=== PATIENT | male | born 1955 | race Caucasian/White ===

== ENCOUNTER 2021-11-12 08:00 | Outpatient (RCR) | payer MEDICARE, BC, SELFPAY ==
--- NOTE | 2021-11-12 11:46 | PT.OPDNX ---
PT [place] [facility] Daily Note PT [facility] Daily Note Start: 10/28/21 14:20 Freq: Status: Active Protocol: Document 11/12/21 09:09 MARLENY (Rec: 11/12/21 09:12 MARLENY [id number]) E-Signed By SUKUMAR BakerT, MS PT OP Daily Progress Note Visit Information Note Type Recert/Progress Note Visit Number [id number] Insurance Information Recert Due Date 11/06/21 Insurance Name Medicare B,Blue [employer] Medical Diagnosis Post-op right total knee arthroplasty Treating Diagnosis R knee pain, decreased R knee ROM, decreased R LE flexibility and strength, and gait dysfunction Subjective Subjective Pt reports his knee has been feeling great with stiffness upon waking being only complaint, but this is improving. 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 Continues to perform his HEP 1-2x per day alternating walking and biking . Working diligently on his ext ROM. Plans on attempting I sx management with his HEP as he preps for his L TKA in Dec 2021. Pain Comments 0-1 Objective Other/Pertinent Objective Right knee AROM: 0-0-133 deg in supine Gait: improved quality with decreased L stance time, decreased L stride length and improved velocity SLS: R 10 sec, L 5 sec with pain Stairs: good reciprocal pattern ascending<>descending 10 stairs 1 railing Strength Hip flex, knee ext, knee flex, hip ext B 5/5. Hip ABD R 4/5, L 4-/5 Patient Instructed in Risks/Benefits Yes Therapeutic Exercise Therapeutic Exercise Minutes (minutes) 45 Therapeutic Exercise: To Restore -Recumbent bike for ROM and Functional Status overall mobility x 8 min -Standing HS stretching 30 sec x 3 - seated HS curl machine progressed 4.5 plates 10 x 3 reps - allowing for a good stretch at the top to the posterior knee -leg press B LE 90# 10 x 3 reps focus on TKE -TKE with ball on wall for 12 x 5 holds focusing on TKE -Retro walking focusing on TKE for R LE 4 x 45 ft -Fwd Step up 6 inch w/UE assist 12 x 3 reps R LE -Progressed to side stepping OTB above knees 30' x 6, 3 sets -SLR progressed slight ER 3 x 12 reps focus on keeping quad engaged without ext lag -SLS R LE FG EO 5 x 10 sec -Progressed walking july 23' x 6, 2 sets Manual Therapy Techniques Manual Therapy Minutes (minutes) 15 Manual Therapy Techniques *Knee passive ROM 0-0-133 deg following STM/TPR around superiors patellar muscles, working to stretch the posterior knee AP knee mobs to improve ext Treatment Minutes Timed Code Treatment Minutes 60 Total Treatment Time 60 Billing Units Manual Therapy Units 1 Therapeutic Exercise Units 3 Assessment/Impression Assessment/Impression Pt continues to progress very well in PT with significant improvement quality of gait, balance and R LE strength with no quad lag during SLR today. Continued diligent HEP performance with pt focusing on passive ext. Excellent HEP compliance and good esthela to progression of dynamic LE strengthening today. All PT goals met or progressing and he will attempt I sx management. 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 Plan of Care Physical Therapy Goals Short-term goals to be completed in 4 weeks: 1.Pt will display active right knee ROM > 0-0-120 deg to improve quality of gait. MET 2.Pt will display improved R LE strength as evidenced by ability to perform >15 SLR of good quality to improve quality of gait and progress to ambulation with single point cane. MET Long-term goals to be completed in 12 weeks: 1.Pt will be independent and compliant with HEP. MET 2.Pt will display improved right hip flex, hip ABD, quad and hamstring strength >4/5 to improve quality of gait without assistive device. Progressing 3.Pt will be able to walk for >10 minutes with right knee pain </= 2/10 to improve cardiovascular endurance. MET 4.Pt will report >75% improvement in LEFS questionnaire to significantly improve esthela to daily activities. MET Daily Plan of Care Continue per POC Recertification Information Clinical Certification # #[id number] Patient's H.I.C.N.# # Most Recent Visit 11/12/21 Recertification Start Date 11/06/21 Recertification Due Date 02/04/22 Reasons to Continue Skilled Therapy See assessment. Pt has experienced elevated R knee pain and swelling as he increases functional activity performance. Rehabilitation Potential Excellent Continued Plan of Care and Interventions 1x every other week for 2-4 additional visits with TE, MT, NM re-ed. I Certify That I Have Established All Therapy Services/Plan Therapist Signature & License Number Tr Bg, DPT [id number] Physician Signature Shows Agreement Dates & Medical Necessity Physician Comment/Change Comment or Changes Physician Signature & Date Please Sign/Date Here Physician NPI Number #
== END 2022-01-02 08:33 | disposition home or self-care (01) ==
PROVIDERS: PCP Family Medicine; Visit Provider Orthopaedic Surgery
DX: M25.561 Pain in right knee (principal); R26.9 Unspecified abnormalities of gait and mobility; Z51.89 Encounter for other specified aftercare
CPT/HCPCS: 97110; 97140

== ENCOUNTER 2022-01-06 08:54 | Day surgery (SDC) | payer MEDICARE, BC, SELFPAY ==
[2022-01-05 14:00] VITALS: BP 149/92; PULSE 62; RESP 16; TEMP 36; O2SAT 98
[2022-01-06] VITALS (33 sets, daily range): BP systolic 104–171; BP diastolic 66–98; PULSE 53–85; RESP 14–20; TEMP 36–36.7; O2SAT 90–98; BMI 30.9
[2022-01-06] MEDS: CELECOXIB 200 MG CAPSULE PO ×2 (09:30→21:13)
[2022-01-06] MEDS: SODIUM CHLORIDE 0.9 % (FLUSH) 10 ML SYRINGE IVF (09:30)
[2022-01-06] MEDS: LACTATED RINGERS 1000 ML 1,000 ML 100 ML IV (09:30)
[2022-01-06] MEDS: OXYCODONE (CR) 10 MG TAB.ER.12H PO (09:30)
[2022-01-06] MEDS: ACETAMINOPHEN 500 MG TABLET 1000 MG PO ×2 (09:30→18:01)
[2022-01-06] MEDS: fentaNYL 100 MCG/2 ML inj IVP (10:07)
[2022-01-06] MEDS: MIDAZOLAM HCL 1 MG/ML inj IVP (10:07)
--- NOTE | 2022-01-06 10:15 | SUR.PREOP ---
TIME?OUT:?1006 PT/RN/MDA?VERIFICATION?OF?SURGICAL?SITE,?PROCEDURE,?AND?CONSENT OBTAINED?PRIOR?TO?INVASIVE?PROCEDURE. All in agreement.
--- NOTE | 2022-01-06 11:18 | W.ANESCHARGE ---
Anesthesia Charges Start Date/Time Anesthesia Start Date: 01/06/22 Anesthesia Start Time: 10:42 Stop Date/Time Anesthesia Stop Date: 01/06/22 Anesthesia Stop Time: 13:06 Summary Emergency: No
[2022-01-06] MEDS: CEFAZOLIN 2 GM INJ IVP (11:30)
--- NOTE | 2022-01-06 12:17 | CRLHL7_ITS ---
For Patients: As a result of the Cures Act, medical imaging exams and procedure reports are released immediately into your electronic medical record. You may view this report before your referring provider. If you have questions, please contact your health care provider. Indication: POST OP LEFT KNEE Technique: Two views left knee Findings/Impression: Hardware from a left total knee arthroplasty is in satisfactory position. Bone alignment is normal. No sign of acute fracture. Postop changes are within normal limits. Dictated by Carlos Eduardo Chase MD @ 01/06/2022 3:31:12 PM (Electronically Signed)
--- NOTE | 2022-01-06 12:18 | W.PM.NB ---
Nerve Block Nerve Block Date Seen: 01/06/22 Type of block requested by surgeon for post-operative analgesia: adductor canal Side: left Time out performed: Yes Verification of patient name: Yes Verification of date of : Yes Site marking: site marked Name of person performing procedure: Milton Continuous monitoring Was continuous monitoring of O2 sat, B/P, front desk monitor, recorded every 15 minutes?: Yes Procedure Checklist: sterile prep, needles and gloves Ultrasound guided. Images saved: Yes Medications given in 5ml increments after negative aspiration: Ropivicaine %: 0.5 mL: 20 Needle gauge: 22 Decadron (mg): 10 Precedex (mcg): 25 Patient tolerated procedure well: Yes Additional comments: Needle noted adjacent to nerve Block Charges Block Charge (with Pro Fee): Femoral Nerve Use of Ultrasound Machine for Block: Yes- US Guidance/pain block
--- NOTE | 2022-01-06 12:18 | W.PM.NB ---
Nerve Block Nerve Block Date Seen: 01/06/22 Type of block requested by surgeon for post-operative analgesia: geniculars Side: left Time out performed: Yes Verification of patient name: Yes Verification of date of : Yes Site marking: site marked Name of person performing procedure: Milton Continuous monitoring Was continuous monitoring of O2 sat, B/P, playground monitor, recorded every 15 minutes?: Yes Procedure Checklist: sterile prep, needles and gloves Medications given in 5ml increments after negative aspiration: Ropivicaine %: 0.5 mL: 9 Needle gauge: 25 Patient tolerated procedure well: Yes Block Charges Block Charge (with Pro Fee): Genicular Nerve Block Use of Ultrasound Machine for Block: No
--- NOTE | 2022-01-06 12:23 | PM.ORPRC ---
Procedure Note Date of procedure: 01/06/22 Procedure: SURGEON: Bradly Juan MD RADIOLOGY PHYSICIAN: BRIAN Lambert PREOPERATIVE DIAGNOSIS: Left knee osteoarthritis POSTOPERATIVE DIAGNOSIS: Left knee osteoarthritis NAME OF OPERATION: Left total knee arthroplasty ANESTHESIA: Spinal ESTIMATED BLOOD LOSS: 0 mL COMPLICATIONS: None SPECIMENS: None DRAINS: None PREOPERATIVE ANTIBIOTICS: Ancef 2 grams IMPLANTS: 1. J&J Attune # 7 posterior stabilized femur 2. # 8 fixed-bearing tibia 3. # 7 posterior stabilized, 7 mm fixed-bearing polyethylene 4. 41 patella INDICATIONS: The patient is a 66-year-old male with a longstanding history of severe, unrelenting left knee pain secondary to end-stage (grade IV) left knee osteoarthritis. Despite appropriate nonoperative management, including activity modification, anti-inflammatories, [id number] pain medication, bracing, physical therapy, and injections they continue to have pain and disability. Operative intervention was offered. The risks, benefits and expected outcomes were discussed in detail. These included but were not limited to: Infection, bleeding, injury to blood vessel or nerve, venous thromboembolism. All questions were answered to their satisfaction. Use of an kindergarten instructional assistant was necessary throughout the case for patient positioning and safety, soft tissue retraction, and closure. PROCEDURE: Spinal anesthesia was administered. The patient was placed supine on the operating table. The kindergarten instructional assistant made sure the patient was positioned appropriately. The lower extremity was prepped and draped in the usual sterile fashion. The limb was exsanguinated with the Roosevelt bandage. The pneumatic tourniquet was inflated to 300 mmHg. A standard anterior incision was made with the knee in flexion. Subcutaneous dissection was sharply taken through fascial layer #1. Full-thickness medial and lateral flaps were elevated. The kindergarten instructional assistant retracted the soft tissues and protected them throughout the case. A standard medial parapatellar approach was made. The patella was everted. The infrapatellar fat pad was preserved. The menisci and cruciate ligaments were sharply d?brided. Marginal osteophytes were d?brided with the rongeur. The drill was used to penetrate the femoral canal. The canal was aspirated and irrigated with pulse lavage. The intramedullary femoral guide was placed for a 5-degree valgus cut, removing 10 mm off the distal femur. The saw was used to make the cut. Whitesides line and the trans epicondylar axis were marked. The femoral sizing guide was pinned onto the distal femur. Three degrees of external rotation nicely parallels the transepicondylar axis. Pins were placed for posterior referencing. The four-in-one cutting guide was pinned onto the distal femur. The anterior, posterior, and chamfer cuts were made. The kindergarten instructional assistant protected the collateral ligaments. The box cutting guide was pinned. The box cuts were made. The boxed trial was placed and was an excellent fit. Drill holes for the lugs were made. Attention was then turned to the proximal tibia. The extramedullary tibial guide was placed for a neutral varus/valgus cut with 5 degrees of posterior slope, removing 2 mm based off the medial tibial surface. The kindergarten instructional assistant protected the collateral ligaments and the neurovascular bundle. The saw was used to make the cut. Trial components were placed. The knee was nicely balanced in both flexion and extension. Rotation of the tibial component was matched to the femur in full extension, matched to our tibial cutting pins, and marked with cautery. The trial components were removed. The tray was pinned by the kindergarten instructional assistant and the drill and the punch were used. The tray was removed. The punch was used again. We placed a bone plug in the femoral canal. Attention was then turned to the patella. [place] patellar thickness was 26 mm. The lobster claw resection guide was used with the 9.5 mm eladio. The saw was used to make the cut. Drill holes were made by the kindergarten instructional assistant. The trial was placed and was an excellent fit. Cancellous surfaces were irrigated with pulse lavage and thoroughly dried by the kindergarten instructional assistant. We cemented the tibial component, then the femoral component. A trial spacer was placed. The knee was brought into full extension. We then cemented the patellar component. Excessive cement was removed. The cement was allowed to harden. Any remaining excessive cement was removed with the osteotome. We impacted the 7 mm polyethylene onto the tibial tray. The knee was taken through a range of motion and was found to be nicely balanced in both flexion and extension. The patella tracks centrally. The kindergarten instructional assistant did a three minute dilute Betadine solution soak. The kindergarten instructional assistant irrigated the wound with 3 liters of normal saline via pulse lavage. The kindergarten instructional assistant reapproximated the extensor mechanism with #1 Vicryl in an interrupted [id number] fashion. The kindergarten instructional assistant then ran the extensor mechanism with a #1 PDO Stratafix. The kindergarten instructional assistant closed the subcutaneous tissues with a 3-0 Stratafix and the skin with a running 3-0 Stratafix in a subcuticular fashion. Glue was used to seal the skin. The kindergarten instructional assistant placed a dry dressing, JANN stocking, and Polar Care. Sponge and needle counts were correct x2. The patient tolerated the procedure well. There were no apparent complications. They were carefully transferred to the hospital bed and taken to the postanesthesia care unit in satisfactory condition. PLAN: The patient will be mobilized with physical therapy. Aspirin will be used for DVT prophylaxis. They will be discharged to home once medically appropriate.
--- NOTE | 2022-01-06 14:42 | W.ANESCHARGE ---
Anesthesia Charges Start Date/Time Anesthesia Start Date: 01/06/22 Anesthesia Start Time: 10:42 Stop Date/Time Anesthesia Stop Date: 01/06/22 Anesthesia Stop Time: 13:06 Summary Emergency: No
--- NOTE | 2022-01-06 15:56 | PC.NURSE ---
Pt arrived from PACU via hospital bed to room 255 @ 13:51 pm s/p LTKA with Dr. Juan. Pleases see initial assessment from PACU and Q 15 minute VS. Pt rating his pain 0 out of 10. Tolerating ice chips and sips of water w/o c/o nausea or vomiting. Knee lock on, bed alarm on. Mepilex dressing CDI under cryocuff. Knee high shalom hose and plexipulses in place. Advanced diet to regular. Pt's sister present at bedside. Report to Kelsey Bryant RN for evening shift. Pt able to wiggle his toes on arrival to floor, pt denies pain though he is starting to experience tingling at shift change.
[2022-01-06 16:05] LABS: Sodium* 140 mmol/L (135-149)
[2022-01-06] MEDS: OXYCODONE 5 MG TABLET PO ×2 (16:47→21:14)
[2022-01-06] MEDS: CEFAZOLIN 2 GM in 0.9 % SODIUM CHLORIDE Mini-bag 100 ML IVPB (18:01)
[2022-01-06] MEDS: ONDANSETRON 2 MG/ML inj 4 MG IVP (19:08)
[2022-01-06] MEDS: SENNOSIDES 1 TAB TABLET 2 TAB PO (21:14)
[2022-01-06] MEDS: ASPIRIN 81 MG TABLET EC PO (21:14)
[2022-01-06] MEDS: SODIUM CHLORIDE 0.9 % (FLUSH) 10 ML SYRINGE 5 ML IVF (21:16)
--- NOTE | 2022-01-06 22:18 | PM.IMCN1 ---
Date of Consult Patient: Darron Patient Consult date: 01/06/22 Requesting Physician: Orthopedics Primary Care Provider: Rickie Valdez MD Consult Narrative Reason for consult: Postoperative management of tobacco dependence, hyperlipidemia Narrative: Ger Brown is a 66 year old man who presents for elective left total knee arthroplasty due to end-stage left gonarthrosis. This is undertaken successfully without any obvious complications. I review his preoperative exam. No major concerns. Did have a serum potassium 5.3. Smoking roughly 1/3 pack cigarettes daily. Review of Systems Status of ROS: Reports: 6 or more systems reviewed and unremarkable except as noted in History and below Narrative: Negative angina or anginal equivalent. No dyspnea at rest, paroxysmal nocturnal dyspnea, orthopnea. Denies syncope or near-syncope. No cough. No nausea or vomiting. Independent in ADLs. Lives alone. Has a sister who lives nearby and is very supportive. One step into his house. Twelve steps down to the basement. Denies bowel or bladder concerns. No focal motor neurologic deficits. No recent travel, trauma, injury, or infection. Denies weight loss or waking. Denies heat or cold intolerance. Denies polyuria, polydipsia, polyphagia. [facility] Medical History (Updated 01/06/22 @ 22:26 by Fox Eubanks MD) Hyperlipidemia Hypertriglyceridemia Overweight Prediabetes Primary osteoarthritis of both knees Tobacco use disorder Vitamin D deficiency Surgical History (Updated 01/06/22 @ 22:25 by Fox Eubanks MD) History of total knee replacement (TKR) Hx of tonsillectomy Family History Father Bladder cancer Brother Pancreatic cancer Maternal Grandmother Diabetes Social History Smoking Status: Current every day smoker What tobacco products do you use: cigarettes Do you use any of these nicotine containing products: None How often do you have a drink containing alcohol: 2-4 times a month Alcohol type: beer How many standard drinks containing alcohol do you have on a typical day: 1 or 2 How often do you have six or more drinks on one occasion: Never AUDIT-C Alcohol total score: 2 Non-prescribed substance use: denies use Caffeine: Yes (coffee, 2 cups/day) Meds Home Medications and Allergies Home Medications Medication Instructions Recorded Confirmed Type CardioOxen 1 tab PO DAILY 01/02/22 01/06/22 History atorvastatin 40 mg tablet 40 mg PO HS 01/02/22 01/06/22 History cholecalciferol (vitamin D3) 25 2,000 unit PO DAILY 01/02/22 01/06/22 History mcg (1,000 unit) capsule multivitamin (Daily Multi-Vitamin 1 tab PO DAILY 01/02/22 01/06/22 History tablet) omega 8-sgb-iqr-fish oil 300 1 cap PO DAILY 01/02/22 01/06/22 History mg-1,000 mg capsule (Fish Oil) ibuprofen 200 mg tablet (IBU-200) 600 mg PO TID 01/06/22 01/06/22 History Allergies Allergy/AdvReac Type Severity Reaction Status Date / Time No Known Drug Allergies Allergy Verified 01/06/22 09:11 Exam Narrative: Exam Narrative: I notice that when he is asleep sometimes his heart rate is in the upper 40s, sinus bradycardia. When he is awake heart rates closer to 60. No acute distress. Appears comfortable. Articulate and cooperative. Friendly. Mood and affect are congruent. Alert, oriented to self, place, time, situation. Hearing and vision are grossly normal. Dentition in fair repair. Midline trachea, normal thyroid. Supple neck. Lungs are clear to auscultation without wheezing, rhonchi, or rales. Heart tones with regular rhythm, normal S1-S2. Abdomen with active bowel sounds, soft, nontender. Extremities without edema. Able to wiggle all fingers and toes. No focal motor neurologic deficits. Cranial nerves 3-12 grossly normal. No tremor, asterixis, or ataxia. Const: Vital Signs, click to edit/add: Vital Signs - 24 hr 01/06/22 09:53 01/06/22 09:57 01/06/22 10:12 Temperature 98.0 F Pulse Rate 66 61 58 L Pulse Rate [Left P ulse Oximeter] Respiratory Rate 16 14 14 Blood Pressure 131/89 133/75 125/75 Blood Pressure [Ri ght Arm] Pulse Oximetry 96 94 93 Oxygen Delivery Me thod Room Air Room Air Nasal Cannula Oxygen Flow Rate 2 01/06/22 10:09 01/06/22 13:03 01/06/22 13:25 Temperature 97.3 F L Pulse Rate 64 58 L 67 Pulse Rate [Left P ulse Oximeter] Respiratory Rate 14 16 18 Blood Pressure 122/75 106/67 130/83 Blood Pressure [Ri t Arm] Pulse Oximetry 94 92 95 Oxygen Delivery Me thod Nasal Cannula Nasal Cannula Nasal Cannula Oxygen Flow Rate 2 2 2 01/06/22 13:05 01/06/22 13:10 01/06/22 13:05 Temperature Pulse Rate 55 L 59 L Pulse Rate [Left P ulse Oximeter] Respiratory Rate 18 18 Blood Pressure 116/74 104/91 H 106/67 Blood Pressure [Ri ght Arm] Pulse Oximetry 93 92 Oxygen Delivery Me thod Nasal Cannula Oxygen Flow Rate 2 01/06/22 13:07 01/06/22 13:08 01/06/22 13:09 Temperature Pulse Rate 59 L 60 64 Pulse Rate [Left P ulse Oximeter] Respiratory Rate Blood Pressure 116/74 Blood Pressure [[facility] Arm] Pulse Oximetry 90 90 92 Oxygen Delivery Me thod Oxygen Flow Rate 01/06/22 13:12 01/06/22 13:14 01/06/22 13:15 Temperature Pulse Rate 60 63 62 Pulse Rate [Left P ulse Oximeter] Respiratory Rate Blood Pressure 104/91 H Blood Pressure [[facility] Arm] Pulse Oximetry 93 94 93 Oxygen Delivery Me thod Oxygen Flow Rate 01/06/22 13:16 01/06/22 13:18 01/06/22 13:19 Temperature Pulse Rate 59 L 60 57 L Pulse Rate [Left P ulse Oximeter] Respiratory Rate Blood Pressure 118/78 Blood Pressure [[facility] Arm] Pulse Oximetry 92 92 93 Oxygen Delivery Me thod Oxygen Flow Rate 01/06/22 13:21 01/06/22 13:22 01/06/22 13:23 Temperature Pulse Rate 57 L 57 L 60 Pulse Rate [Left P ulse Oximeter] Respiratory Rate Blood Pressure 131/83 Blood Pressure [[facility] Arm] Pulse Oximetry 94 94 93 Oxygen Delivery Me thod Oxygen Flow Rate 01/06/22 13:35 01/06/22 13:35 01/06/22 14:50 Temperature 97.4 F L 96.8 F L Pulse Rate 59 L 53 L 61 Pulse Rate [Left P ulse Oximeter] Respiratory Rate 20 19 16 Blood Pressure 138/77 137/83 Blood Pressure [Ri ght Arm] 146/88 H Pulse Oximetry 95 93 Oxygen Delivery Me thod Room Air Room Air Oxygen Flow Rate 0 01/06/22 14:00 01/06/22 14:15 01/06/22 14:30 Temperature 96.8 F L Pulse Rate Pulse Rate [Left P ulse Oximeter] 62 57 L 61 Respiratory Rate 16 16 16 Blood Pressure Blood Pressure [Ri ght Arm] 149/92 H 147/74 H 154/93 H Pulse Oximetry 98 96 96 Oxygen Delivery Me thod Room Air Room Air Room Air Oxygen Flow Rate 0 0 01/06/22 14:45 01/06/22 15:00 01/06/22 15:00 Temperature 97.9 F Pulse Rate Pulse Rate [Left P ulse Oximeter] 57 L 70 70 Respiratory Rate 16 16 Blood Pressure Blood Pressure [Ri ght Arm] 154/87 H 156/98 H Pulse Oximetry 96 93 Oxygen Delivery Me thod Room Air Room Air Oxygen Flow Rate 0 01/06/22 15:30 01/06/22 16:00 01/06/22 17:00 Temperature 97.9 F 96.9 F L Pulse Rate Pulse Rate [Left P ulse Oximeter] 74 73 77 Respiratory Rate 16 16 18 Blood Pressure Blood Pressure [Ri ght Arm] 157/97 H 156/84 H 138/66 Pulse Oximetry 92 94 94 Oxygen Delivery Me thod Room Air Room Air Room Air Oxygen Flow Rate 0 0 0 01/06/22 18:00 01/06/22 19:00 Temperature 98.1 F Pulse Rate Pulse Rate [Left P ulse Oximeter] 64 67 Respiratory Rate 18 18 Blood Pressure Blood Pressure [Ri ght Arm] 171/98 H 171/98 H Pulse Oximetry 92 92 Oxygen Delivery Me thod Room Air Room Air Oxygen Flow Rate 0 0 Documenting provider has reviewed patient's vital signs: yes Labs Labs: BMP 01/06/22 15:40 Sodium 140 Assessment and Plan Assessment and plan (1) Primary osteoarthritis of both knees: Status: Acute (2) Status post left knee replacement: Problem comment: 01/06/2022 Status: Acute (3) Tobacco use disorder: Status: Acute Plan 1. Reviewed impression with patient. 2. Agree with the perioperative antibiotic prophylaxis. 3. Agree with postoperative venous thromboembolism prophylaxis. 4. Will follow with patient while he is in the hospital. 5. Nicotine inhalers as needed. He is not even pre contemplative about quitting smoking at this juncture. 6. Patient agreeable to above stated plans and recommendations.
[2022-01-06] MEDS: LORazepam 0.5 MG TABLET PO (22:28)
--- NOTE | 2022-01-06 22:33 | PC.NURSE ---
Shift Note [id number]: Pt friendly and cooperative. A/o and able to verbalize needs. Slightly hypertensive this afternoon, pt attributes this to pain and the hospital setting. He denies any symptoms. Surgical dressing to left knee is C,D,&I with cryocuff in place. Moves well with assist x1 with GB and walker. Pt c/o difficulty getting comfortable in hospital bed and falling asleep. 1mg Ativan given PRN. Rates pain to left knee 3/10, Oxycodone given PRN. 1 episode of emesis of 100cc after walking to the BR and doing HS cares. Zofran given IVP and n/v resolved.
[2022-01-07] MEDS: ACETAMINOPHEN 500 MG TABLET 1000 MG PO ×2 (00:28→05:28)
[2022-01-07 03:00] VITALS: BP 100/57; PULSE 60; RESP 18; TEMP 36.4; O2SAT 93
[2022-01-07] MEDS: CEFAZOLIN 2 GM in 0.9 % SODIUM CHLORIDE Mini-bag 100 ML IVPB ×2 (03:25→09:27)
[2022-01-07] MEDS: 0.9 % SODIUM CHLORIDE 250 ml IV (03:26)
[2022-01-07] MEDS: OXYCODONE 5 MG TABLET PO (05:35)
--- NOTE | 2022-01-07 06:54 | PC.NURSE ---
shift note 19-: pt pleasant and cooperative. SBA with walker. Calls appropriately. Dressing to left knee CDI, cryo cuff on. No c/o pain.
[2022-01-07 07:00] VITALS: BP 112/70; PULSE 61; RESP 18; TEMP 36.4; O2SAT 100
[2022-01-07 07:34] LABS: Hematocrit 38.9 % (37.0-53.0); Hemoglobin* 13.4 gm/dL (13.5-17.5); Lymphocytes Percent Auto 10.3 % (20-44); Mean Corpuscular HGB Conc 34 gm/dL (32-36); Mean Corpuscular Hemoglobin 30 pg (26-34); Mean Corpuscular Volume 87 fL (80-100); Monocytes Percent Auto 10.9 % (0.0-11.0); Neutrophils Percent Auto 78.3 % (42.0-72.0); Platelet Count* 259 K/uL (140-440); RDW Coefficient of Variation % 13.4 % (11.5-15.5); Red Blood Count 4.48 m/uL (4.30-5.90); White Blood Count* 20.16 K/uL (4.50-11.00)
[2022-01-07 07:52] LABS: Potassium* 4.1 mmol/L (3.6-5.1)
[2022-01-07 07:54] LABS: Creatinine* 0.8 mg/dL (0.5-1.5); Estimated Glomerular Filt Rate 96 ml/min
[2022-01-07 07:55] LABS: Blood Urea Nitrogen* 14 mg/dL (7-30); INR 1.07 (0.91-1.10); Prothrombin Time 14.3 Seconds; Slide Review Reflex No
--- NOTE | 2022-01-07 08:15 | PM.ORPN ---
Subjective Subjective Time Seen by Provider: 07:30 Date Seen: 01/07/22 Principal diagnosis: Status post left total knee arthroplasty Interval history: Ger is vomiting as I entered his room this morning. He is otherwise comfortable. Ortho Exam Narrative Exam Narrative: Alert and oriented x3. Patient is in no acute distress. Converses without labored breathing. Hearing is grossly intact. Examination of left knee shows mild ecchymosis. Soft tissue hematoma present over the anterior knee. Mild effusion. Bilateral calves are soft and nontender. CMS is intact left lower extremity. Nontender to palpation about the knee. Ice pack in place. Const Vital Signs, click to edit/add: Vital Signs - 24 hr 01/06/22 09:53 01/06/22 09:57 01/06/22 10:12 Temperature 98.0 F Pulse Rate 66 61 58 L Pulse Rate [Left Pulse Oximeter] Respiratory Rate 16 14 14 Blood Pressure 131/89 133/75 125/75 Blood Pressure [Right Arm] Pulse Oximetry 96 94 93 Oxygen Delivery Method Room Air Room Air Nasal Cannula Oxygen Flow Rate 2 01/06/22 10:09 01/06/22 13:03 01/06/22 13:25 Temperature 97.3 F L Pulse Rate 64 58 L 67 Pulse Rate [Left Pulse Oximeter] Respiratory Rate 14 16 18 Blood Pressure 122/75 106/67 130/83 Blood Pressure [Right Arm] Pulse Oximetry 94 92 95 Oxygen Delivery Method Nasal Cannula Nasal Cannula Nasal Cannula Oxygen Flow Rate 2 2 2 01/06/22 13:05 01/06/22 13:10 01/06/22 13:05 Temperature Pulse Rate 55 L 59 L Pulse Rate [Left Pulse Oximeter] Respiratory Rate 18 18 Blood Pressure 116/74 104/91 H 106/67 Blood Pressure [Right Arm] Pulse Oximetry 93 92 Oxygen Delivery Method Nasal Cannula Oxygen Flow Rate 2 01/06/22 13:07 01/06/22 13:08 01/06/22 13:09 Temperature Pulse Rate 59 L 60 64 Pulse Rate [Left Pulse Oximeter] Respiratory Rate Blood Pressure 116/74 Blood Pressure [Right Arm] Pulse Oximetry 90 90 92 Oxygen Delivery Method Oxygen Flow Rate 01/06/22 13:12 01/06/22 13:14 01/06/22 13:15 Temperature Pulse Rate 60 63 62 Pulse Rate [Left Pulse Oximeter] Respiratory Rate Blood Pressure 104/91 H Blood Pressure [Right Arm] Pulse Oximetry 93 94 93 Oxygen Delivery Method Oxygen Flow Rate 01/06/22 13:16 01/06/22 13:18 01/06/22 13:19 Temperature Pulse Rate 59 L 60 57 L Pulse Rate [Left Pulse Oximeter] Respiratory Rate Blood Pressure 118/78 Blood Pressure [Right Arm] Pulse Oximetry 92 92 93 Oxygen Delivery Method Oxygen Flow Rate 01/06/22 13:21 01/06/22 13:22 01/06/22 13:23 Temperature Pulse Rate 57 L 57 L 60 Pulse Rate [Left Pulse Oximeter] Respiratory Rate Blood Pressure 131/83 Blood Pressure [Right Arm] Pulse Oximetry 94 94 93 Oxygen Delivery Method Oxygen Flow Rate 01/06/22 13:35 01/06/22 13:35 01/06/22 14:50 Temperature 97.4 F L 96.8 F L Pulse Rate 59 L 53 L 61 Pulse Rate [Left Pulse Oximeter] Respiratory Rate 20 19 16 Blood Pressure 138/77 137/83 Blood Pressure [Right Arm] 146/88 H Pulse Oximetry 95 93 Oxygen Delivery Method Room Air Room Air Oxygen Flow Rate 0 01/06/22 14:00 01/06/22 14:15 01/06/22 14:30 Temperature 96.8 F L Pulse Rate Pulse Rate [Left Pulse Oximeter] 62 57 L 61 Respiratory Rate 16 16 16 Blood Pressure Blood Pressure [Right Arm] 149/92 H 147/74 H 154/93 H Pulse Oximetry 98 96 96 Oxygen Delivery Method Room Air Room Air Room Air Oxygen Flow Rate 0 0 01/06/22 14:45 01/06/22 15:00 01/06/22 15:00 Temperature 97.9 F Pulse Rate Pulse Rate [Left Pulse Oximeter] 57 L 70 70 Respiratory Rate 16 16 Blood Pressure Blood Pressure [Right Arm] 154/87 H 156/98 H Pulse Oximetry 96 93 Oxygen Delivery Method Room Air Room Air Oxygen Flow Rate 0 01/06/22 15:30 01/06/22 16:00 01/06/22 17:00 Temperature 97.9 F 96.9 F L Pulse Rate Pulse Rate [Left Pulse Oximeter] 74 73 77 Respiratory Rate 16 16 18 Blood Pressure Blood Pressure [Right Arm] 157/97 H 156/84 H 138/66 Pulse Oximetry 92 94 94 Oxygen Delivery Method Room Air Room Air Room Air Oxygen Flow Rate 0 0 0 01/06/22 18:00 01/06/22 19:00 01/06/22 23:00 Temperature 98.1 F Pulse Rate Pulse Rate [Left Pulse Oximeter] 64 67 67 Respiratory Rate 18 18 18 Blood Pressure Blood Pressure [Right Arm] 171/98 H 171/98 H Pulse Oximetry 92 92 Oxygen Delivery Method Room Air Room Air Oxygen Flow Rate 0 0 01/06/22 23:00 01/07/22 03:00 Temperature 97.3 F L 97.6 F Pulse Rate Pulse Rate [Left Pulse Oximeter] 85 60 Respiratory Rate 18 18 Blood Pressure Blood Pressure [Right Arm] 158/93 H 100/57 L Pulse Oximetry 96 93 Oxygen Delivery Method Room Air Room Air Oxygen Flow Rate 0 0 Documenting provider has reviewed patient's vital signs: yes Assessment and Plan Assessment and plan (1) Primary osteoarthritis of both knees: Status: Acute (2) Status post left knee replacement: Problem details: 01/06/2022 Status: Acute Assessment and Plan: Plan for discharge is today to home if they meet discharge criteria. DVT prophylaxis includes aspirin 81 mg twice daily x1 month, Aries stockings x1 month may remove for 1 hr per day, frequent ambulation Remove dressing in 1 week. Observe wound and phone Orthopedics with any questions or concerns Return to clinic in 1 week for a wound check Return to clinic in [address] Juan Minimize narcotic use. Wean off and discontinue soon as possible. Activities as tolerated. No strenuous activity. Outpatient physical therapy as scheduled. Ice and elevate the operative extremity. No restriction on ice. (3) Tobacco use disorder: Status: Acute
[2022-01-07] MEDS: CELECOXIB 200 MG CAPSULE PO (09:27)
[2022-01-07] MEDS: SENNOSIDES 1 TAB TABLET 2 TAB PO (09:27)
[2022-01-07] MEDS: ASPIRIN 81 MG TABLET EC PO (09:27)
[2022-01-07] MEDS: SODIUM CHLORIDE 0.9 % (FLUSH) 10 ML SYRINGE 5 ML IVF (09:29)
--- NOTE | 2022-01-07 12:40 | PC.NURSE ---
pt pleasant and cooperative. SBA with walker. Calls appropriately. Dressing to left knee CDI, cryo cuff on. No c/o pain. Pt. discharged today to home at 1225, via wheelchair and accompanied by sister. IV removed intact. Discharge instructions given and signed. Pt. verbalized understanding. Pt. stated he feels a bit nauseous almost like he has gut rot. Belongings list signed and home medications returned and accounted for.
== END 2022-01-07 12:25 | disposition home or self-care (01) ==
LOC: OR 08:56 → MEDSURG 09:00
PROVIDERS: PCP Family Medicine; Visit Provider Orthopaedic Surgery
PROC: (CPT 27447; principal; 2022-01-06 11:00)
DX: M17.12 Unilateral primary osteoarthritis, left knee (principal); F17.200 Nicotine dependence, unspecified, uncomplicated; R73.03 Prediabetes; E55.9 Vitamin D deficiency, unspecified; E78.2 Mixed hyperlipidemia; E66.3 Overweight; Z68.30 Body mass index [BMI] 30.0-30.9, adult
CPT/HCPCS: 27447; 1402; 36415; 64447; 64454; 73560; 76942; 82565; 84132; 84295; 84520; 85025; 85610; 97110; 97116; 97161; 97165; A9270; C1776; J0690; J1100; J2250; J2405; J2704; J2795; J3010; J7050; J7120

== ENCOUNTER 2022-03-05 08:00 | Outpatient (RCR) | payer MEDICARE, BC, SELFPAY ==
--- NOTE | 2021-12-31 10:29 | PT.OPEX ---
PT [place] Outpatient Eval PT [facility] Outpatient Eval Start: 12/31/21 09:22 Freq: Status: Active Protocol: Document 12/31/21 09:22 MARLENY (Rec: 12/31/21 09:30 MARLENY [id number]) E-signed By Melvin Pederson DPT, MS Physical Therapy Outpatient Evaluation Insurance Information Recert Due Date 03/31/22 Insurance Name Medicare B Medical Diagnosis Pre-op left total knee arthroplasty Treating Diagnosis L knee pain, decreased L knee ROM, decreased L LE flexibility and strength, and gait dysfunction Subjective Subjective Pt is a 66 y.o. male who presents to PT prior to L TKA on 01/06/22 at [facility]. Has struggled with B (L>R) knee pain and end stage OA for years. R TKA in July 2021 went great with no issues with his knee. 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 Lives alone in a rambler home with 1 step to enter his home. Stairs to basement with railing. Shower has 2-foot- tall lip and will be having a academic dean install grab bars this week. Prepping his home to ensure safety. Has continued performing his HEP for B LE following R TKA. AGGR factors : walking, stair climbing, standing, in<>out of cars, sleeping, uneven surfaces, weightlifting. ALLEV factors: ice, rest. Pain Comments 2-11/02 Current Work Status Retired Preferred Name [employer] Precautions Therapy Limitations/Systems Review Not Limited Objective Functional Test Performed & Score LEFS: 15 Assessment Assessment/Impression Objectively pt displays decreased L LE flexibility and ROM, imbalance, gait dysfunction and B LE weakness. Good quality of quad set with knee ROM 0-0-137 deg. Pt highly motivated to increase activity levels and to be ready for the winter. He will benefit from continued skilled PT intervention to address these limitations, returning following L TKA. Primary Functional Limitations Walking, stair climbing, standing, in<>out of cars, sleeping, uneven surfaces, weightlifting. Plan of Care Rehabilitation Potential Excellent Physical Therapy Goals By end of session today, patient will... Demonstrate appropriate gait pattern with FWW to utilize post surgery for optimal safety when ambulating Verbalize understanding of most appropriate home set up including needed equipment for optimal safety and recovery post surgery Be independent in HEP program to show ability to perform appropriate exercises post surgery Coordination/Communication With Referral Source Treatment Plan/Direct Interventions Gait Training,Joint Mobilization,Manual Therapy, Neuromuscular Re-ed,Self-Care/ Home Management,Therapeutic Activities,Therapeutic Exercises Frequency/Duration One pre-op visit then 2 x per week for at least 12-18 visits , decreasing visit frequency, as able. Patient Will Be Discharged From Therapy Completion of LTG(s),Skills Plateau,Independent w/HEP, Independently Progressing Evaluation Billing Untimed Code Treatment Minutes 20 Complexity Moderate Certification Information Initial Certification Date 12/31/21 Ending Certification Date 03/31/22 Provider Signature Shows Agreement With POC & Medical Necessity Physician Comment/Change Comment or Changes Physician NPI Number #
== END 2022-08-31 12:41 | disposition home or self-care (01) ==
PROVIDERS: PCP Family Medicine; Visit Provider Orthopaedic Surgery
DX: Z96.652 Presence of left artificial knee joint (principal); Z51.89 Encounter for other specified aftercare
CPT/HCPCS: 97110; 97140; 97162; 97164

== ENCOUNTER 2023-03-20 06:43 | Emergency (ER) | payer MEDICARE, BC, SELFPAY ==
[2023-03-20 06:47] VITALS: BP 107/68; PULSE 101; RESP 16; TEMP 35.9; O2SAT 97; BMI 25.1
--- NOTE | 2023-03-20 07:24 | ED.GENADULT ---
HPI - General Adult General Chief complaint: Fall/Minor Trauma Stated complaint: weak, fell yesterday Time Seen by Provider: 03/20/23 07:18 History of Present Illness HPI narrative: Patient is a 68-year-old gentleman who has been having more falls recently. [facility] and had a negative workup to this point. Last night he felt unsteady but not injured. He may have stumbled but he is not certain. He had some minor sweating throughout the night I did not feel any respiratory symptoms. He comes in today as he is not certain what is causing all of these symptoms. He now feels completely asymptomatic. He has no pain no respiratory symptoms no changes bowel or bladder. He has not hit his head and has no bone pain. He is completely asymptomatic. Related Data Home Medications Medication Instructions Recorded Confirmed atorvastatin 40 mg tablet 40 mg PO QDAY 03/03/23 03/20/23 calcium carbonate [Calcium 500] PO 03/03/23 03/03/23 cholecalciferol (vitamin D3) PO 03/03/23 03/03/23 fish [id number]-vit C-vit E PO 03/03/23 03/03/23 ibuprofen 600 mg tablet mg PO PRN 03/03/23 03/03/23 multivitamin with minerals-folic 1 tab PO Q24H 03/03/23 03/03/23 acid 120 mcg chewable tablet (Men's Multivitamin Gummies) Previous Rx's Medication Instructions Recorded polyethylene glycol 3350 17 gram 17 g PO BID #30 ea 03/03/23 oral powder packet Allergies Allergy/AdvReac Type Severity Reaction Status Date / Time No Known Drug Allergies Allergy Verified 03/03/23 10:35 Review of Systems Status of ROS: Reports: 10 or more systems reviewed and unremarkable except as noted in History and below [facility] Medical History Tobacco use disorder ?F17.200 - Nicotine dependence, unspecified, uncomplicated (ICD-10) Primary osteoarthritis of both knees ?M17.0 - Bilateral primary osteoarthritis of knee (ICD-10) Overweight ?E66.3 - Overweight (ICD-10) Hypertriglyceridemia ?E78.1 - Pure hyperglyceridemia (ICD-10) Vitamin D deficiency ?E55.9 - Vitamin D deficiency, unspecified (ICD-10) Prediabetes ?R73.03 - Prediabetes (ICD-10) Hyperlipidemia ?E78.5 - Hyperlipidemia, unspecified (ICD-10) Surgical History History of total right knee replacement (08/19/21) ?Z96.651 - Presence of right artificial knee joint (ICD-10) Status post left knee replacement (01/06/22) ?Z96.652 - Presence of left artificial knee joint (ICD-10) Hx of tonsillectomy ?Z90.89 - Acquired absence of other organs (ICD-10) Family History Father Bladder cancer Brother Pancreatic cancer Maternal Grandmother Diabetes Social History Smoking Status: Current every day smoker What tobacco products do you use: cigarettes Do you use any of these nicotine containing products: None How often do you have a drink containing alcohol: 2-4 times a month Alcohol type: beer How many standard drinks containing alcohol do you have on a typical day: 1 or 2 How often do you have six or more drinks on one occasion: Never AUDIT-C Alcohol total score: 2 Non-prescribed substance use: denies use Caffeine: Yes (coffee, 2 cups/day) Exam Narrative: Exam Narrative: EXAM GENERAL: Patient appears comfortable and well. EYES: No scleral icterus. LYMPH: No supraclavicular or cervical lymphadenopathy. SKIN: Visible skin seen during exam normal or with benign process only. EXT: No dependent lower extremity pedal edema. HEART: Regular rate and rhythm with no murmurs, rubs, or gallops. LUNGS: Clear to auscultation bilaterally with no crackles or wheezes. ABD: Soft, non tender, non distended. PSYCH: Good eye contact, speech is not pressured. Const: Vital Signs, click to edit/add: Vital Signs - 24 hr 03/20/23 06:47 Temperature 96.6 F L Pulse Rate [Left P ulse Oximeter] 101 H Respiratory Rate 16 Blood Pressure [Ri ght Upper Arm] 107/68 Pulse Oximetry 97 Course Course ED Course: Patient seen and examined. Vital Signs Vital signs: Initial Vital Signs Temperature 96.6 F L 03/20/23 06:47 Temperature Source Temporal Artery Scan 03/20/23 06:47 Pulse Rate 101 H 03/20/23 06:47 Respiratory Rate 16 03/20/23 06:47 Blood Pressure 107/68 03/20/23 06:47 Blood Pressure Mean 81 03/20/23 06:47 Blood Pressure Position Supine 03/20/23 06:47 Pulse Oximetry 97 03/20/23 06:47 Vital Signs Temperature 96.6 F L 03/20/23 06:47 Pulse Rate 101 H 03/20/23 06:47 Respiratory Rate 16 03/20/23 06:47 Blood Pressure 107/68 03/20/23 06:47 Pulse Oximetry 97 03/20/23 06:47 Temperature 96.6 F L 03/20/23 06:47 Pulse Rate 101 H 03/20/23 06:47 Respiratory Rate 16 03/20/23 06:47 Blood Pressure 107/68 03/20/23 06:47 Pulse Oximetry 97 03/20/23 06:47 Medical Decision Making MDM Narrative Medical decision making narrative: Patient presents with really no significant issues. He did have some sweating last night but no signs of infection. He has been having some falls and is under the [facility] of the [facility] with negative workup this far. He has normal vital signs and a normal exam. He agrees that he feels fine at this point and at this point I have really nothing more to offer him. Reassurance is offered he continues outpatient workup. Discharge Plan Discharge Clinical Impression: Facial sweating Patient Disposition: Home, Self-Care Condition: Stable Instructions: Fall Prevention (ED) Additional Instructions: Continue outpatient workup. Report any change in symptoms. Follow-up with your doctor as scheduled. Activity Level: No Restrictions Discharge Diet: Regular Prescriptions: No Action fish [id number]-vit C-vit E PO ibuprofen 600 mg tablet PO PRN multivit with min-folic acid [Men's Multivitamin Gummies] 120 mcg tablet,chewable 1 tab PO Q24H atorvastatin 40 mg tablet 40 mg PO QDAY cholecalciferol (vitamin D3) PO calcium carbonate [Calcium 500] PO polyethylene glycol 3350 17 gram powder in packet 17 g PO BID Qty: 30 2RF Follow Up/Referrals: Rickie Valdez MD [Primary Care Provider] - Stand Alone Forms: [employer] Info Instructions
[2023-03-20 07:36] VITALS: BP 101/66
--- NOTE | 2023-03-20 07:55 | ED.NURSE ---
pt sitting on edge of bed, c/o dizziness and became warm and diaphoretic, flopped back on bed. pt repositined to be laying on bed, cool cloth to forehead, bp 99/70. pt drinking juice and feeling better. dr. yin updated. no change in plan.
== END 2023-03-20 08:13 | disposition home or self-care (01) ==
PROVIDERS: Emergency Provider Internal Medicine; PCP Family Medicine
DX: R61 Generalized hyperhidrosis (principal)
CPT/HCPCS: 99283